=== PATIENT | female | born 1995 | race Caucasian/White ===

== ENCOUNTER 2024-08-19 13:12 | Inpatient (IN) | payer BC ==
[~2024-08-19] VITALS: Ht 162.6 cm; Wt 77.8 kg
[2024-08-19 13:58] LABS: LEUKOCYTE ESTERASE ,URINE NEGATIVE (Neg); NITRITES, URINE NEGATIVE (Neg); OCCULT BLOOD,URINE MODERATE (Neg)
[2024-08-19 14:00] LABS: URINE HCG NEGATIVE (NEG)
[2024-08-19 14:04] LABS: UA COLLECTION TYPE CLN CATCH MIDSTREAM
[2024-08-19 14:06] LABS: MUCUS STRANDS FEW /LPF (Neg); SQUAMOUS EPITHELIAL CELL,UR MODERATE /LPF (FEW)
[2024-08-19 14:09] LABS: MEAN PLATELET VOLUME 8.3 FL (7.4-10.4); RED CELL DISTRIBUTION WIDTH 13.3 % (11.5-14.5)
--- NOTE | 2024-08-19 14:10 | Physician Documentation ---
History of Present Illness Chief Complaint: Abdominal Pain Stated Complaint: ABD PAIN Time Seen by MD: 14:05 HPI 28-year-old female experiencing sudden onset right lower quadrant abdominal pain history of ovarian cyst Past Medical History Past Surgical History: no surgical history Lives In: Home Review of Systems Gastrointestinal: Reports: see HPI Physical Exam Vital Signs: RN Vital Signs have been reviewed: Yes, Temperature: 98.7, Source: Oral, Heart Rate: 110, Respiratory Rate: 18, BP: 114/77, Pulse Oximetry: 100, Weight: 77.850 Oxygen Flow Rate: 0 General Appearance: WD/WN, no apparent distress Respiratory: lungs clear, normal breath sounds, no respiratory distress Cardiovascular: regular rate, rhythm Gastrointestinal Tender to palpate right lower quadrant no rebound tenderness no guarding rigidity normal bowel sounds Progress Results/Orders Results/Orders Vital Signs 08/19/24 13:31 Temp 98.7 Pulse 110 Resp 18 B/P (MAP) 114/77 Pulse Ox 100 O2 Flow Rate 0 Laboratory Tests Test 08/19/24 13:35 08/19/24 13:47 Urine Specimen Description Cln catch midstream Urine Color Yellow Urine Clarity Clear Urine pH 6.0 Urine Specific [place] 1.025 Urine Protein Negative Urine Glucose (UA) Negative Urine Ketones Trace H Urine Occult Blood Moderate H Urine Nitrite Negative Urine Bilirubin Negative Urine Urobilinogen 0.2 Urine Leukocyte Esterase Negative Urine RBC 0-2 Urine WBC None seen Urine Squamous Epithelial Cells Moderate Urine Bacteria None seen Urine Mucus Few Urine Culture Indicated Not ind Volume Urine Centrifuged 10 ml Urine HCG, Qualitative Negative Urine Comment CBC Comment Chemistry Comments EKG/XRAY/CT/US/VASC/MRI CT : Impression Exam: CT CT ABDOMEN PELVIS History: ABD PAIN, rule out appendicitis Comparison Study: None Technique: Multidetector spiral CT of the abdomen was performed from lung bases to pubic symphysis. Imaging was performed without IV contrast. Axial, coronal and sagittal multiplanar reformats were obtained from the axial data set by the technologist. Radiation Dose : 1. Abdomen/Pelvis: CTDIvol 18.6 mGy, DLP 912 mGy*cm. Findings: Evaluation of solid organs is limited due to lack of intravenous contrast use. Lung Bases: No acute or significant lung base finding. Normal heart size. No pleural or pericardial effusion. Liver: The liver is normal in size. No focal lesions. Gallbladder and Biliary Tree: Unremarkable Spleen: Unremarkable Pancreas: The pancreas is grossly normal in appearance. Adrenal Glands: Unremarkable Kidneys: Punctate nonobstructing right renal calculus. No hydronephrosis. Bladder: Grossly unremarkable for degree of distention. Bowel: The stomach is grossly normal in appearance. Small bowel and colon are normal in caliber and distribution. The proximal appendix is normal in caliber. At the mid appendix there is a 8 x 6 x 9 mm densely calcified appendicolith. The appendix distal to this is enlarged (1.7 cm) with wall thickening. There is moderate surrounding periappendiceal fat stranding and mild ill-defined soft tissue which may represent phlegmon. There is no well-defined abscess. No evidence of free air. Ascites: Trace free fluid in the pelvis. Lymphadenopathy: No mesenteric, retroperitoneal or periportal lymphadenopathy. Abdominal Wall and Mesentery: Unremarkable. Vasculature: The visualized abdominal aorta is normal in size and caliber. Evaluation of abdominal and pelvic vessels is limited due to lack of intravenous contrast. Pelvic Organs: Uterus is unremarkable. A tampon is in place. Musculoskeletal: No aggressive focal bony lesions, acute fractures or dislocation. IMPRESSION: Acute appendicitis due to a mid appendiceal appendicolith. Moderate surrounding inflammation/phlegmon. No evidence of free air or well-defined abscess. Critical Result: Acute appendicitis Ultrasound : Impression Technique: Real-time ultrasound images through the pelvis using a transabdominal transducer. Indication: History of ovarian cyst right lower quadrant pain Comparison: None Findings: The uterus measures 7.6 cm. The endometrial stripe measures 2 mm. There are no focal masses. There is no abnormal flow in the endometrium. Right ovary measures 2.7 x 1.8 x 1.2 cm. Normal flow on color doppler images. No focal masses are identified. Left ovary measures 3.4 x 1.7 x 2.5 cm. Normal flow on color doppler images. No focal masses are identified. There is no significant free fluid in the pelvis. In the right lower quadrant, there is a blind ending tubular structure measuring 13 mm in diameter. No hyperemia seen. No surrounding edema seen. Impression: Blind-ending tubular structure in the right lower quadrant measuring 13 mm in diameter that is noncompressible. However there is no surrounding edema or evidence of hyperemia. Recommend CT abdomen pelvis to evaluate for possible appendicitis. No evidence for ovarian torsion. Medical Decision Making Findings 28-year-old with right lower quadrant acute onset abdominal pain with history of ovarian cyst labs reviewed with elevated white count preliminary read from ultrasound shows no significant ovarian cyst but thickening of appendix. CT indicates acute appendicitis without rupture abscessed no peritoneal signs spoke to [employer] aware of patient at 1723. Admit to hospitalist Differential Dx:Considerations: Include: Appendicitis, Bowel obstruction, Cholelithasis, Constipation, Diverticular disease, Gastroenteritis, Hernia, Inflammatory BD, Ovarian cyst/torsion, PID Departure Time of Disposition: 17:24 Disposition: 09 ADMITTED INPATIENT Impression: Primary Impression: Acute appendicitis Condition: Fair Referrals: NO PRIMARY CARE PROVIDER (PCP) Education Educated: Patient, Family Educated regarding: diagnosis, treatment, need for follow up Signature Scribe Signature: No scribe Attestation: The note accurately reflects work and decisions made by me.Madai Qiuntana - WADE 08/19/24 14:10 MADAI QUINTANA NP Aug 19, 2024 14:10
[2024-08-19 14:25] LABS: CREATININE 0.92 MG/DL (0.40-0.90); TOTAL CARBON DIOXIDE 24.4 MMOL/L (24-32); eCRCL 80 ML/MIN; eGFR 74 ML/MIN
--- NOTE | 2024-08-19 16:13 | RADIOLOGY REPORT ---
Technique: Real-time ultrasound images through the pelvis using a transabdominal transducer. Indication: History of ovarian cyst right lower quadrant pain Comparison: None Findings: The uterus measures 7.6 cm. The endometrial stripe measures 2 mm. There are no focal masses. There is no abnormal flow in the endometrium. Right ovary measures 2.7 x 1.8 x 1.2 cm. Normal flow on color doppler images. No focal masses are jeison ntified. Left ovary measures 3.4 x 1.7 x 2.5 cm. Normal flow on color doppler images. No focal masses are jeison ntified. There is no significant free fluid in the pelvis. In the right lower quadrant, there is a blind endin g tubular structure measuring 13 mm in diameter. No hyperemia seen. No surrounding edema seen. Impression: Blind-ending tubular structure in the right lower quadrant measuring 13 mm in diameter that is noncom pressible. However there is no surrounding edema or evidence of hyperemia. Recommend CT abdomen pelv is to evaluate for possible appendicitis. No evidence for ovarian torsion.
--- NOTE | 2024-08-19 17:00 | RADIOLOGY REPORT ---
Exam: CT CT ABDOMEN PELVIS History: ABD PAIN, rule out appendicitis Comparison Study: None Technique: Multidetector spiral CT of the abdomen was performed from lung bases to pubic symphysis. Imaging was performed without IV contrast. Axial, coronal and sagittal multiplanar reformats were ob tained from the axial data set by the technologist. Radiation Dose : 1. Abdomen/Pelvis: CTDIvol 18.6 mGy, DLP 912 mGy*cm. Findings: Evaluation of solid organs is limited due to lack of intravenous contrast use. Lung Bases: No acute or significant lung base finding. Normal heart size. No pleural or pericardial effusion. Liver: The liver is normal in size. No focal lesions. Gallbladder and Biliary Tree: Unremarkable Spleen: Unremarkable Pancreas: The pancreas is grossly normal in appearance. Adrenal Glands: Unremarkable Kidneys: Punctate nonobstructing right renal calculus. No hydronephrosis. Bladder: Grossly unremarkable for degree of distention. Bowel: The stomach is grossly normal in appearance. Small bowel and colon are normal in caliber and d istribution. The proximal appendix is normal in caliber. At the mid appendix there is a 8 x 6 x 9 mm densely calcified appendicolith. The appendix distal to this is enlarged (1.7 cm) with wall thickeni ng. There is moderate surrounding periappendiceal fat stranding and mild ill-defined soft tissue whic h may represent phlegmon. There is no well-defined abscess. No evidence of free air. Ascites: Trace free fluid in the pelvis. Lymphadenopathy: No mesenteric, retroperitoneal or periportal lymphadenopathy. Abdominal Wall and Mesentery: Unremarkable. Vasculature: The visualized abdominal aorta is normal in size and caliber. Evaluation of abdominal a nd pelvic vessels is limited due to lack of intravenous contrast. Pelvic Organs: Uterus is unremarkable. A tampon is in place. Musculoskeletal: No aggressive focal bony lesions, acute fractures or dislocation. IMPRESSION: Acute appendicitis due to a mid appendiceal appendicolith. Moderate surrounding inflammation/phlegmon . No evidence of free air or well-defined abscess. Critical Result: Acute appendicitis Findings discussed with SOFYA WILKERSON at 08/19/2024 04:55 PM, and acknowledged receipt and under standing of the findings.
[2024-08-19] MEDS: ondansetron/PF 4mg/2ml inj IV ONE (17:49)
[2024-08-19] MEDS: piperacillin/tazo 3.375gm/50ml 50 ML IV ONE (17:50)
[2024-08-19] MEDS: morphine 4 MG/ML inj SYRINge IV ONE ×2 (17:50→18:54)
[2024-08-19] MEDS: normal saline 1000ML IV soln IVB ONE (17:51)
[2024-08-19] MEDS ORDERED: NO HOME MEDS (18:03)
[2024-08-19] MEDS ORDERED: HYDROcodone/acetaminophen 5mg/325mg tablet PO PRN (19:25)
[2024-08-19] MEDS ORDERED: HYDROmorphone/PF 0.2 MG/ML SYRINGE IV PRN (19:25)
--- NOTE | 2024-08-19 19:32 | HISTORY AND PHYSICAL-Residence ---
History & Physical Providers to CC Resident Creating Document: RENU COOMBS, RES ~ History of Present Illness Primary Medical Doctor: [facility] Reason for Admit\Complaint: Acute appendicitis History of Present Illness Attestation I agree with the residents assessment and plan as below: Problem List: appendicitis Plan: continue zosyn empirically NPO plan for OR in am mIVF CCT 47 min using HIPPA compliant A/V technology This is a 28-year-old female with history of multiple ovarian cyst s/p cystectomy presents to the ER with a chief complaint of right lower quadrant pain since yesterday. Patient states that she had cold sweats, dizziness and felt like she was about to pass out on night followed by which he had severe abdominal pain. Patient pain has progressively worsened and had no relief despite taking Tylenol, ibuprofen or using heating pad. Today it worsened to the level that she could not move, hence decided to come to the ER. She denies any nausea, vomiting, diarrhea, fever, significant smoking history. Allergies: Coded Allergies: No Known Allergies (Unverified , 08/19/24) Home Medications Home Medications Active Reported No Home Medications (Home Med List) Each Past Medical History Past Medical History Multiple ovarian cysts Past Surgical History Surgical History Comment Cystectomy Past Social History Social History Comment Denies smoking, occasionally used alcohol five years ago, quit now. Denies any drug use. Lives with and [id number] kid at home. Ambulates independently Lives In: Home ROS ROS Reviewed in full and negative except for the pertinent positives in HPI Gastrointestinal: Reports: see HPI Exam Vitals: Vital Signs Date Time Temp Pulse Resp B/P (MAP) Pulse Ox O2 Delivery O2 Flow Rate FiO2 08/19/24 18:56 87 20 102/62 (75) 99 08/19/24 17:20 98.7 0 General: General: well developed, well nourished. Awake , alert, and oriented x4, resting comfortably in the bed, in no acute distress . HEENT: Atraumatic, normocephalic, EOMI, anicteric sclera B; pink conjunctiva; PERRLA, normal oropharynx, moist oral and nasal mucosa. Tympanic membrane , nose , throat clear. Neck: Trachea midline. Supple, full range of motion, no JVD, bruit , hepatojugular reflex , lymphadenopathy or masses, or other lesions Cardiac: Regular rhythm, regular rate no murmurs, rubs, or gallops. Normal S1 and S2, no S3 noticed. PMI is normal. Respiratory: Equal breath sounds bilaterally, no tachypnea; lungs clear to auscultation bilaterally, no wheezing ,rub or rales, or crackles. Chest wall is symmetric and without deformity. No signs of trauma. Chest wall is nontender. No signs of respiratory distress. Resonance is normal upon percussion bilaterally. Gastrointestinal: Abdomen symmetric, non-distended, soft, severe tenderness to palpation in the right lower quadrant, normal bowel sounds x4 quadrant, normoactive, no hepatosplenomegaly , no masses , no bruit, no flank pain bilaterally. No voluntary guarding, rebound, or rigidity. No pulsatile masses. Equal femoral pulses. No Nguyen's sign, positive McBurney point tenderness. Back; no CVA tenderness bilaterally, no deformities. Neck and back are without deformity as well. No tenderness noted on palpation of the spinous processes. Spinous processes are midline. Cervical, thoracic, and lumbar paraspinal muscles are not tender and are without spasm. : normal external genitalia, without lesions, swelling, masses or tenderness. Musculoskeletal: Extremities, normal range of motion, non-tender, muscle strength 5/5 x 4. Negative Homans signs bilaterally on lower extremity. Distal pulses full symmetrical, no clubbing, cyanosis , edema. Neurological: Speech is clear, alert, and oriented x 4. No motor or sensory deficit, deep tendon reflexes normal, cerebellar intact. Cranial nerves II-XII intact. Psych: Alert and or appropriate, normal affect. Vascular: Good distal pulses, which are equal x4; capillary refill less than 2 seconds. Skin: Warm, dry, no pallor, no rash or petechiae. Diagnostic Data Last Recorded Lab Results: 08/19/24 1347 08/19/24 1347 Advance Care Planning Advanced Care plannin - 30 Minutes (I spent a total of 17 minutes on reviewing various resuscitative measures/ ACP with the patient at the time of admission. The patient has decided on a full code status) Additional Plan Acute non perforated appendicitis Severe right lower quadrant pain and McBurney tenderness present Pelvis ultrasound showed Blind-ending tubular structure in the right lower quadrant measuring 13 mm in diameter that is noncompressible. However there is no surrounding edema or evidence of hyperemia. Recommend CT abdomen pelvis to evaluate for possible appendicitis. No evidence for ovarian torsion. CT abdomen showed Acute appendicitis due to a mid appendiceal appendicolith. Moderate surrounding inflammation/phlegmon. No evidence of free air or well- defined abscess. Beta hCG is negative. Mild leukocytosis with WBC 69013, creatinine at 0.92 Started on prophylactic antibiotic Zosyn Q [address] Castellon has been consulted. Recommendations appreciated. Pain management with morphine as needed. Diet recommendations per surgeon Code Status: Full code DVT Prophylaxis: Heparin Analgesia/Sedation: Dilaudid, morphine p.r.n. Lines/Tubes: PIV Gi Prophylaxis: None Nutrition: Per surgeon recommendation PT: Yes Prognosis: Guarded Disposition: Admit to surgical floor. Pending surgical recommendation Renu Cano MD Internal Medicine Resident PGY-1 Date of Service: Aug 19, 2024 Billing Provider: ALEXANDER NORIEGA MD, DEEPIKA BANDI, RES Aug 19, 2024 19:32 ALEXANDER NORIEGA MD Aug 20, 2024 03:00
--- NOTE | 2024-08-19 19:53 | PROGRESS NOTE ---
Progress Note ID Providers to CC ~ Progress Note Progress Note: pt seen and examined-needs rogero appy-possible open-discussed procedure including risks/benefits/alternatives MARINA MCDOWELL MD Aug 19, 2024 19:53
[2024-08-19] MEDS: heparin, porcine 5000 units/ml vial SQ SCH (20:00)
[2024-08-19] MEDS ORDERED: morphine 4 MG/ML inj SYRINge IV PRN (20:10)
[2024-08-19] MEDS ORDERED: ondansetron/PF 4mg/2ml inj IV PRN (20:10)
[2024-08-19] MEDS ORDERED: labetalol 20mg/4ml (5mg/ml) syringe IV PRN (20:10)
[2024-08-19] MEDS ORDERED: fentaNYL/PF 50MCG/1 ML 2ML syringe IV PRN ×2 (20:10)
[2024-08-19] MEDS ORDERED: hydrALAZINE 20mg/ml inj. IV PRN (20:10)
[2024-08-19] MEDS ORDERED: ringers solution, lacted 1,000 ML IV SCH (20:10)
[2024-08-19] MEDS: HYDROmorphone inj. 0.5 MG/0.5 ML DISP.SYRIN IV PRN (20:11)
[2024-08-19 21:20] VITALS: RESP 18; O2SAT 97
[2024-08-19 21:30] VITALS: BP 116/71; PULSE 110; RESP 18; TEMP 99.2; O2SAT 97
[2024-08-19] MEDS: docusate sod 100mg capsule PO SCH (22:00)
[2024-08-19] MEDS: ondansetron/PF 4mg/2ml inj IV PRN (22:21)
[2024-08-19] MEDS: piperacillin/tazo 3.375gm/50ml 50 ML IV SCH (23:52)
[2024-08-20] VITALS (23 sets, daily range): BP systolic 76–110; BP diastolic 46–68; PULSE 57–133; RESP 8–19; TEMP 97.3–100.1; O2SAT 93–98
[2024-08-20] MEDS ORDERED: ceFAZolin/D5W- 1GM premix 50 ML IV SCH
[2024-08-20] MEDS: normal saline 1000ml 1,000 ML IV SCH (03:15)
[2024-08-20 05:55] LABS: MEAN PLATELET VOLUME 8.7 FL (7.4-10.4); RED CELL DISTRIBUTION WIDTH 13.3 % (11.5-14.5)
[2024-08-20 06:10] LABS: CREATININE 0.94 MG/DL (0.40-0.90); TOTAL CARBON DIOXIDE 22.4 MMOL/L (24-32); eCRCL 78 ML/MIN; eGFR 72 ML/MIN
--- NOTE | 2024-08-20 07:16 | ELECTROCARDIOGRAPH REPORT ---
[facility] Test Date: 2024-08-20 Test Time: 07:15:08 Pat Name: AIDEE MORALES Department: [facility] 3 Patient ID: [id number] Room: [place] [id number] B Gender: F Rope Walker: : 1995 Requested By: MARINA MCDOWELL Order Number: [id number] Reading MD: Dr. LAUREL Baltazar Measurements Intervals [place] Rate: 116 P: 25 MO: 146 QRS: 2 QRSD: 89 T: 0 QT: 286 QTc: 398 Interpretive Statements Sinus tachycardia Low voltage, precordial leads Borderline abnrm T, anterolateral leads Electronically Signed On 08-20-2024 11:46:[address] LAUREL Baltazar Please click the below link to view image of tracing.
[2024-08-20] MEDS: HYDROcodone/acetaminophen 10/325mg tab PO PRN (07:39)
[2024-08-20] MEDS ORDERED: morphine 4 MG/ML inj SYRINge IV PRN (08:00)
[2024-08-20] MEDS ORDERED: ondansetron/PF 4mg/2ml inj IV PRN (08:00)
[2024-08-20] MEDS ORDERED: labetalol 20mg/4ml (5mg/ml) syringe IV PRN (08:00)
[2024-08-20] MEDS ORDERED: fentaNYL/PF 50MCG/1 ML 2ML syringe IV PRN ×2 (08:00)
[2024-08-20] MEDS ORDERED: hydrALAZINE 20mg/ml inj. IV PRN (08:00)
[2024-08-20 08:01] LABS: PRE OP INR 1.3 INR; PRE OP PARTIAL THROMB. TIME 31.0 SECONDS (22-32); PRE OP PROTIME 12.7 SECONDS (9.0-12.0)
[2024-08-20] MEDS ORDERED: LIDOcaine 2% (20mg/ml) 5ml vial ONE (08:06)
[2024-08-20] MEDS ORDERED: dexamethasone sod phosphate 4mg/ml inj. ONE (08:06)
[2024-08-20] MEDS ORDERED: rocuronium 10mg/ml inj IV ONE (08:06)
[2024-08-20] MEDS ORDERED: propofol inj 20 ML IV ONE (08:06)
[2024-08-20] MEDS ORDERED: ondansetron/PF 4mg/2ml inj ONE (08:06)
[2024-08-20] MEDS ORDERED: magnesium sulf-water 4G/100mL 100 ML IV PRN ×2 (08:50→08:55)
[2024-08-20] MEDS ORDERED: magnesium sulf-water 2g/50mL 50 ML IV PRN ×2 (08:50→08:55)
[2024-08-20] MEDS ORDERED: magnesium Cl slow-release 64mg tablet PO PRN ×2 (08:50→08:55)
[2024-08-20] MEDS ORDERED: potassium Cl 40MEQ/1/2NS 520ml 520 ML IV PRN ×2 (08:50→08:55)
[2024-08-20] MEDS ORDERED: potassium Cl 20 mEq SR tablet PO PRN ×2 (08:55)
[2024-08-20] MEDS: scopolamine 1MG/72H patch 1 PATCH PATCH.TD.3 TD STA (09:06)
[2024-08-20] MEDS ORDERED: midazolam 1 mg/ML 2ml injection ONE (09:23)
[2024-08-20] MEDS ORDERED: ketorolac trometh 30MG/ML vial 30 MG/ML VIAL ONE (09:23)
[2024-08-20] MEDS ORDERED: acetaminophen 1,000mg/100ml IV 100 ML IV ONE (09:23)
[2024-08-20] MEDS ORDERED: metoprolol tartrate 1mg/ml inj IV ONE (09:34)
--- NOTE | 2024-08-20 11:02 | OPERATIVE REPORT ---
Operative Report Providers to CC CC: MARINA MCDOWELL MD ~ Date of Procedure: Aug 20, 2024 Pre-Operative Diagnosis: ACUTE APPENDICITIS Post-Operative Diagnosis ruptured appendicitis Procedure Performed chari proctor Surgeon: ronit Artificial Breeding Technician none Anesthesiologist: Emmanuel Ye Type of Anesthesia: General Findings: ruptured appendicitis Estimated Blood Loss: min Specimen Removed: MARINA Baldwin MD Aug 20, 2024 11:02
[2024-08-20] MEDS: ringers solution, lacted 1,000 ML IV SCH (11:04)
--- NOTE | 2024-08-20 12:17 | OPERATIVE REPORT ---
DATE OF SURGERY: 08/20/2024 DICTATING PHYSICIAN: Diaz Castellon MD PREOPERATIVE DIAGNOSIS: Appendicitis. POSTOPERATIVE DIAGNOSIS: Ruptured appendicitis. PROCEDURE PERFORMED: Robotic appendectomy. SURGEON: Diaz Castellon MD RAILROAD FIRER: None. ANESTHESIA: General/Dr. Ye. DRAINS: #19 Srini drain. INDICATIONS FOR OPERATION: A 48-year-old female who presented to the ER with complaints of abdominal pain, found to have acute appendicitis, taken to surgery for robotic appendectomy. INTRAOPERATIVE FINDINGS: Gangrenous appendicitis. DESCRIPTION OF PROCEDURE: The patient was placed supine on the operating table. After induction of general anesthesia and placement of endotracheal tube, the abdomen was prepped and draped. A subumbilical incision was then made and a 12 port placed using open technique and pneumoperitoneum was begun by insufflation of CO2. Additional ports were placed in the left lower quadrant and right upper quadrant. Appendix was then visualized on mobilizing small bowel and cecum away from the right lower quadrant. Appendix found to be gangrenous. Appendiceal cecal junction was identified, isolated and ligated with Endo-KAPIL stapler and divided as was the appendiceal mesentery. Appendix ruptured during the course of mobilization. Abdomen was copiously irrigated with large amount of antibiotic-containing solution. Hemostasis was found to be adequate. Robotic instruments were removed. Robotic undocked from the field. Appendix was placed in Endobag using a laparoscope. A #19 Srini drain was placed and directed in the pelvis. New ports were then removed without difficulty. Final port and camera withdrawn as well as appendix using Endobag. Pneumoperitoneum was evacuated. Wounds were closed in layers. Skin was closed with subcuticular stitch. Dressings applied. The patient was transferred to recovery in stable condition. Diaz Castellon MD TID: [id number] RECEIPT: [id number] DONTE/DARLING
--- NOTE | 2024-08-20 14:44 | PROGRESS NOTE- Residence ---
Progress Note - Resident Providers to CC Resident Creating Document: JEFFERSON MALHOTRA RES ~ Antibiotic Timeout Antibiotic Ordered?: Yes If Yes, Indications: Appendicitis Subjective Patient in seen and examined at bedside. Patient reports mild abdominal pain after the surgery but is otherwise feeling well. She denies nausea, vomiting, fever or other symptoms. She tolerated soft diet after the surgery. Objective Vital Signs Date Time Temp Pulse Resp B/P (MAP) Pulse Ox O2 Delivery O2 Flow Rate FiO2 08/20/24 12:52 Room Air 08/20/24 12:40 2.0 08/20/24 12:30 93 19 96 08/20/24 10:58 97.3 08/20/24 00:27 97 Result Diagram: 08/20/24 0505 08/20/24 0505 General: Awake and Alert, no acute distress. HEENT: Conjunctiva pink, Sclera clear, Mucus Membranes moist. Neck: Supple without masses and tenderness. Resp: Unlabored. Lungs clear to auscultation bilaterally. Heart: Regular Rate and rhythm, normal S1 and S2 without murmur, rub or gallop. Abdomen: Srini drain placed with serosanguineous secretion. Abdomen mildly distended but not tender. normal bowel sounds x4 quadrant, normoactive, no hepatosplenomegaly , no masses , no bruit, no flank pain bilaterally. No voluntary guarding, rebound, or rigidity. No pulsatile masses. . Extremities: No cyanosis,clubbing or edema. Skin: Warm and Dry. Coagulation Studies Laboratory Tests Test 08/20/24 07:41 Prothrombin Time 12.7 SECONDS (9.0-12.0) H INR International Normalized Ratio 1.3 INR Activated Partial Thromboplast Time 31 SECONDS (22-32) Assessment Assessment This is a 28-year-old female with history of multiple ovarian cyst s/p cystectomy presented to the ER with a chief complaint of severe right lower quadrant pain for two days. She underwent and appendectomy for ruptured appendicitis without any complication. A Srini drain was placed and the patient is recovering well. Plan Plan Acute perforated appendicitis Severe right lower quadrant pain and McBurney tenderness present CT abdomen showed acute appendicitis due to a mid appendiceal appendicolith. Moderate surrounding inflammation/phlegmon. No evidence of free air or well- defined abscess. Beta hCG is negative. Mild leukocytosis with WBC 40823, creatinine at 0.92 Started on prophylactic antibiotic Zosyn Q [address] Castellon has been consulted. Recommendations appreciated. Pain management with morphine as needed. Diet recommendations per surgeon 08/20/2024 Postoperative diagnosis: ruptured appendicitis Continue postsurgical care Continue Zosyn Continue symptomatic treatment Code Status: Full code DVT Prophylaxis: Heparin Analgesia/Sedation: Ketorolac, Dilaudid, morphine p.r.n. Lines/Tubes: PIV Gi Prophylaxis: None Nutrition: Per surgeon recommendation PT: Yes Prognosis: Guarded Disposition: Continue medical treatment. Discharge plan as per surgeon. Date of Service: Aug 20, 2024 Billing Provider: GRANT BUNDY MD Common Visit Codes: [id number] INP/OBS CARE(HIGH) JEFFERSON MALHOTRA, RES Aug 20, 2024 14:44 GRANT BUNDY MD Aug 20, 2024 20:15
[2024-08-20] MEDS: potassium Cl 20 mEq SR tablet PO PRN ×2 (17:08→20:40)
[2024-08-20] MEDS: K and/or MAG REPLACEMENT MC SCH ×2 (20:00→20:41)
[2024-08-20] MEDS: ketorolac trometh 30MG/ML vial 30 MG/ML VIAL IV PRN (20:28)
[2024-08-21] VITALS (9 sets, daily range): BP systolic 81–106; BP diastolic 48–68; PULSE 76–115; RESP 12–20; TEMP 97.6–100.1; O2SAT 92–97
--- NOTE | 2024-08-21 04:59 | CONSULTATION ---
DATE OF CONSULTATION: 08/19/2024 DICTATING PHYSICIAN: Diaz Castellon MD REASON FOR CONSULTATION: Evaluation of abdominal pain. HISTORY OF PRESENT ILLNESS: The patient is a 28-year-old female who presented to the ER with complaints of abdominal discomfort. CAT scan revealed evidence of acute appendicitis. Surgical evaluation now requested. On further questioning, complaints of right lower quadrant pain for the last 18 hours. Does have some fever. The patient also complains of nausea, vomiting and diarrhea. PAST MEDICAL HISTORY: Significant for ovarian cyst. PAST SURGICAL HISTORY: Notable for previous left ovarian cystectomy. HOME MEDICATIONS: None. ALLERGIES: None. SOCIAL HISTORY: Denies tobacco. Occasional alcohol use. REVIEW OF SYSTEMS: Unremarkable. PHYSICAL EXAMINATION: GENERAL: A well-nourished female, in no distress. VITAL SIGNS: Unremarkable. HEART: Regular rate and rhythm. LUNGS: Clear to auscultation. ABDOMEN: Right quadrant pain. EXTREMITIES: Unremarkable. NEUROLOGIC: Nonfocal. LABORATORY DATA: Include WBC of 11, hematocrit of 40, platelet count 300. Chemistries unremarkable. IMAGING STUDIES: CAT revealed acute appendicitis. Ultrasound shows no evidence of torsion. IMPRESSION: Acute appendicitis. RECOMMENDATIONS: * Admit. * Hydrate. * IV antibiotics. * Robotic appendectomy. Diaz Castellon MD TID: [id number] RECEIPT: [id number]/[id number]
[2024-08-21 06:06] LABS: MEAN PLATELET VOLUME 9.6 FL (7.4-10.4); RED CELL DISTRIBUTION WIDTH 13.3 % (11.5-14.5)
[2024-08-21 06:30] LABS: CREATININE 0.92 MG/DL (0.40-0.90); TOTAL CARBON DIOXIDE 18.7 MMOL/L (24-32); eCRCL 80 ML/MIN; eGFR 74 ML/MIN
--- NOTE | 2024-08-21 17:42 | PROGRESS NOTE- Residence ---
Progress Note - Resident Providers to CC Resident Creating Document: WILLY SYED CC: GRANT BUNDY MD ~ Antibiotic Timeout Antibiotic Ordered?: Yes Subjective Patient in seen and examined at bedside. She is recovering well from surgery. She still reports 8/10 pain in surgical site. Tolerating clear liquids. She has not passed gas or have a bowel movement yet Objective Vital Signs Date Time Temp Pulse Resp B/P (MAP) Pulse Ox O2 Delivery O2 Flow Rate FiO2 08/21/24 10:00 100.1 103 18 100/59 (73) 92 Room Air 08/21/24 02:27 97 08/21/24 02:25 0 Result Diagram: 08/21/2442208/21/24422 General: awake, alert oriented to place, time, and person HEENT: No pallor present, no icterus, moist mucous membranes Neck: No masses and tenderness Resp: Unlabored. Lungs clear to auscultation bilaterally. Chest: Normal expansion Cardiovascular: Regular Rate and rhythm, normal S1 and S2 without murmur, rub or gallop Abdomen: Soft and moderately tender to palpation. No guarding and rigidity, bowel sounds faint but present. Drain in place Neuro: No focal weakness in the upper and lower limb muscles, power of the muscles 5/5 bilateral upper and lower extremities, normal reflexes bilaterally. Cranial nerves intact Extremities: No cyanosis,clubbing or edema Skin: Warm and Dry. No lesions Psych: Normal affect Coagulation Studies Laboratory Tests Test 08/20/24 07:41 Prothrombin Time 12.7 SECONDS (9.0-12.0) H INR International Normalized Ratio 1.3 INR Activated Partial Thromboplast Time 31 SECONDS (22-32) Assessment Assessment This is a 28-year-old female with history of multiple ovarian cyst s/p cystectomy presented to the ER with a chief complaint of severe right lower quadrant pain for two days. She underwent and appendectomy for ruptured appendicitis without any complication. A Srini drain was placed and the patient is recovering well. Plan Plan Acute perforated appendicitis Severe right lower quadrant pain and McBurney tenderness present CT abdomen showed acute appendicitis due to a mid appendiceal appendicolith. Moderate surrounding inflammation/phlegmon. No evidence of free air or well- defined abscess. Beta hCG is negative. Mild leukocytosis with WBC 40981, creatinine at 0.92 Started on prophylactic antibiotic Zosyn Q [address] Castellon has been consulted. Recommendations appreciated. Pain management with morphine as needed. Diet recommendations per surgeon 08/20/2024 Postoperative diagnosis: ruptured appendicitis Continue postsurgical care Continue Zosyn Continue symptomatic treatment 08/21/2024: She is recovering well Tolerating clear liquids Continue Zosyn, day 2 Continue pain management Code Status: Full code DVT Prophylaxis: Heparin Analgesia/Sedation: Ketorolac, Dilaudid, morphine p.r.n. Lines/Tubes: PIV Gi Prophylaxis: None Nutrition: Per surgeon recommendation PT: Yes Prognosis: Guarded Disposition: Continue medical treatment. Discharge plan as per surgeon. Willy Quezada MD Internal Medicine Resident PGY-2 Date of Service: Aug 21, 2024 Billing Provider: GRANT BUNDY MD Common Visit Codes: [id number] INP/OBS CARE(HIGH) WILLY SYED Aug 21, 2024 17:42 GRANT BUNDY MD Aug 22, 2024 08:11
--- NOTE | 2024-08-21 18:48 | PROGRESS NOTE ---
Progress Note ID Providers to CC ~ Progress Note Progress Note: doing well/cont antibx MARINA MCDOWELL MD Aug 21, 2024 18:48
[2024-08-22 04:24] LABS: MEAN PLATELET VOLUME 8.4 FL (7.4-10.4); RED CELL DISTRIBUTION WIDTH 13.4 % (11.5-14.5)
[2024-08-22 04:49] LABS: CREATININE 1.03 MG/DL (0.40-0.90); TOTAL CARBON DIOXIDE 21.1 MMOL/L (24-32)
[2024-08-22 04:50] LABS: eCRCL 71 ML/MIN; eGFR 65 ML/MIN
[2024-08-22 06:00] VITALS: BP 112/65; PULSE 79; RESP 18; TEMP 98.7; O2SAT 94
[2024-08-22 08:00] VITALS: RESP 17; O2SAT 94
--- NOTE | 2024-08-22 13:55 | PROGRESS NOTE- Residence ---
Progress Note - Resident Providers to CC Resident Creating Document: JEFFERSON MALHOTRA RES ~ Antibiotic Timeout Antibiotic Ordered?: Yes If Yes, Indications: Acute inflammatory abdomen Subjective Patient in seen and examined at bedside. She is recovering well from surgery. She still reports mild pain in surgical site. She is partially tolerating clear diet, denies nausea or vomiting. She did not have a bowel movement since surgery. No fever or overnight events reported. Objective Vital Signs Date Time Temp Pulse Resp B/P (MAP) Pulse Ox O2 Delivery O2 Flow Rate FiO2 08/22/24 11:22 16 08/22/24 08:00 94 Room Air 08/22/24 06:00 98.7 79 112/65 (81) 08/21/24 02:27 97 08/21/24 02:25 0 Result Diagram: 08/22/2441208/22/24412 General: Awake and Alert, no acute distress. HEENT: Conjunctiva pink, Sclera clear, Mucus Membranes moist. Neck: Supple without masses and tenderness. Resp: Unlabored. Lungs clear to auscultation bilaterally. Heart: Regular Rate and rhythm, normal S1 and S2 without murmur, rub or gallop. Abdomen: Srini drain placed with serosanguineous secretion. Abdomen mildly distended but not tender. normal bowel sounds x4 quadrant, normoactive, no hepatosplenomegaly , no masses , no bruit, no flank pain bilaterally. No voluntary guarding, rebound, or rigidity. No pulsatile masses. . Extremities: No cyanosis,clubbing or edema. Skin: Warm and Dry. Coagulation Studies Laboratory Tests Test 08/20/24 07:41 Prothrombin Time 12.7 SECONDS (9.0-12.0) H INR International Normalized Ratio 1.3 INR Activated Partial Thromboplast Time 31 SECONDS (22-32) Assessment Assessment This is a 28-year-old female with history of multiple ovarian cyst s/p cystectomy presented to the ER with a chief complaint of severe right lower quadrant pain for two days. She underwent appendectomy for ruptured appendicitis. A Srini drain was placed and the patient is recovering well. Plan Plan Acute perforated appendicitis Severe right lower quadrant pain and McBurney tenderness present CT abdomen showed acute appendicitis due to a mid appendiceal appendicolith. Moderate surrounding inflammation/phlegmon. No evidence of free air or well- defined abscess. Beta hCG is negative. Mild leukocytosis with WBC 22554, creatinine at 0.92 Started on prophylactic antibiotic Zosyn Q [address] Castellon has been consulted. Recommendations appreciated. Pain management with morphine as needed. Diet recommendations per surgeon 08/20/2024 Postoperative diagnosis: ruptured appendicitis Continue postsurgical care Continue Zosyn Continue symptomatic treatment 08/21/2024: She is recovering well Tolerating clear liquids Continue Zosyn, day 2 Continue pain management 08/22/2024 WBC 8.6 Diet progression as tolerated Continue Zosyn, day 3 Code Status: Full code DVT Prophylaxis: Heparin Analgesia/Sedation: Ketorolac, Dilaudid, morphine p.r.n. Lines/Tubes: PIV Gi Prophylaxis: None Nutrition: Per surgeon recommendation Prognosis: Guarded Disposition: Continue medical treatment. Discharge plan as per surgeon. Date of Service: Aug 22, 2024 Billing Provider: GRANT BUNDY MD Common Visit Codes: [id number] INP/OBS CARE(HIGH) JEFFERSON MALHOTRA, RES Aug 22, 2024 13:55 GRANT BUNDY MD Aug 22, 2024 20:52
[2024-08-22] MEDS ORDERED: AMOX-117 PO (14:28)
[2024-08-22 18:00] VITALS: BP 121/79; PULSE 126; RESP 17; TEMP 97.9; O2SAT 96
--- NOTE | 2024-08-22 21:27 | PROGRESS NOTE ---
Progress Note ID Providers to CC ~ Progress Note Progress Note: continues to improve/cont supportive care MARINA MCDOWELL MD Aug 22, 2024 21:27
[2024-08-22 22:00] VITALS: BP 118/75; PULSE 111; RESP 14; TEMP 99.5; O2SAT 100
[2024-08-23 04:57] LABS: MEAN PLATELET VOLUME 8.7 FL (7.4-10.4); RED CELL DISTRIBUTION WIDTH 13.8 % (11.5-14.5)
[2024-08-23 05:20] LABS: CREATININE 0.80 MG/DL (0.40-0.90); TOTAL CARBON DIOXIDE 23.1 MMOL/L (24-32); eCRCL 92 ML/MIN; eGFR 87 ML/MIN
[2024-08-23 06:00] VITALS: BP 110/77; PULSE 97; RESP 12; TEMP 97.5; O2SAT 92
[2024-08-23] MEDS: mag hydrox/Alum hydrox/simeth 30ml oral suspension PO PRN (09:44)
[2024-08-23 10:00] VITALS: BP 126/85; PULSE 121; RESP 15; TEMP 97.6; O2SAT 94
--- NOTE | 2024-08-23 12:23 | PROGRESS NOTE- Residence ---
Progress Note - Resident Providers to CC Resident Creating Document: JEFFERSON MALHOTRA RES ~ Antibiotic Timeout Antibiotic Ordered?: Yes If Yes, Indications: Ruptured appendicitis Subjective Patient in seen and examined at bedside. She is recovering well from surgery. She still reports mild pain in surgical site. She is partially tolerating full liquid diet, denies nausea or vomiting. She did not have a bowel movement since surgery but is passing gas. No fever or overnight events reported. Objective Vital Signs Date Time Temp Pulse Resp B/P (MAP) Pulse Ox O2 Delivery O2 Flow Rate FiO2 08/23/24 10:00 97.6 121 15 126/85 (99) 94 Room Air 08/21/24 02:27 97 08/21/24 02:25 0 Result Diagram: 08/23/2442208/23/24422 General: Awake and Alert, no acute distress. HEENT: Conjunctiva pink, Sclera clear, Mucus Membranes moist. Neck: Supple without masses and tenderness. Resp: Unlabored. Lungs clear to auscultation bilaterally. Heart: Regular Rate and rhythm, normal S1 and S2 without murmur, rub or gallop. Abdomen: Srini drain placed with serosanguineous secretion. Abdomen mildly distended but not tender. normal bowel sounds x4 quadrant, normoactive, no hepatosplenomegaly , no masses , no bruit, no flank pain bilaterally. No voluntary guarding, rebound, or rigidity. No pulsatile masses. . Extremities: No cyanosis,clubbing or edema. Skin: Warm and Dry. Coagulation Studies Laboratory Tests Test 08/20/24 07:41 Prothrombin Time 12.7 SECONDS (9.0-12.0) H INR International Normalized Ratio 1.3 INR Activated Partial Thromboplast Time 31 SECONDS (22-32) Assessment Assessment This is a 28-year-old female with history of multiple ovarian cyst s/p cystectomy presented to the ER with a chief complaint of severe right lower quadrant pain for two days. She underwent appendectomy for ruptured appendicitis. A Srini drain was placed, the patient is recovering well and is being treated with Zosyn. Plan Plan Acute perforated appendicitis Severe right lower quadrant pain and McBurney tenderness present CT abdomen showed acute appendicitis due to a mid appendiceal appendicolith. Moderate surrounding inflammation/phlegmon. No evidence of free air or well- defined abscess. Beta hCG is negative. Mild leukocytosis with WBC 71204, creatinine at 0.92 Started on prophylactic antibiotic Zosyn Q [address] Castellon has been consulted. Recommendations appreciated. Pain management with morphine as needed. Diet recommendations per surgeon 08/20/2024 Postoperative diagnosis: ruptured appendicitis Continue postsurgical care Continue Zosyn Continue symptomatic treatment 08/21/2024: She is recovering well Tolerating clear liquids Continue Zosyn, day 2 Continue pain management 08/22/2024 WBC 8.6 Diet progression as tolerated Continue Zosyn, day 3 08/23/2024 Continue Zosyn, day 4 Pain management Code Status: Full code DVT Prophylaxis: Heparin Analgesia/Sedation: Ketorolac, Dilaudid, morphine p.r.n. Lines/Tubes: PIV Gi Prophylaxis: None Nutrition: Per surgeon recommendation Prognosis: Guarded Disposition: Continue medical treatment. Discharge plan as per surgeon. Date of Service: Aug 23, 2024 Billing Provider: GRANT BUNDY MD Common Visit Codes: [id number] INP/OBS CARE(HIGH) JEFFERSON MALHOTRA, RES Aug 23, 2024 12:23 GRANT BUNDY MD Aug 23, 2024 19:18
[2024-08-23] MEDS: magnesium hydroxide 30ml (MOM) UD suspension PO PRN (17:15)
[2024-08-23] MEDS ORDERED: HYDR-3965 PO (19:26)
--- NOTE | 2024-08-24 18:38 | DISCHARGE SUMMARY-Residence ---
Discharge Summary Providers to CC Resident Creating Document: JEFFERSON MALHOTRA RES ~ Discharge Summary Admission Diagnosis: ACUTE APPENDICITIS Hospital Course DATE OF ADMISSION: 08/19/2024 DATE OF DISCHARGE: 08/23/2024 Discharge lab results Hemoglobin 10.3 WBC 7.2 Platelet count 315 Sodium 136 Potassium 3.9 BUN [address] 08/19/2024: Acute appendicitis due to a mid appendiceal appendicolith. Moderate surrounding inflammation/phlegmon. No evidence of free air or well-defined abscess. Discharge Diagnosis\Comment: Acute perforated appendicitis Operations\Procedures: Appendectomy Consultants: Dr. Castellon Complications: None Condition on DC: Stable New Medications: Amox Tr/Potassium Clavulanate (Augmentin 875-125 Tablet) 1 Each Tablet 1 TAB PO Q12H for 7 Days, #14 TAB Hydrocodone Bit/Acetaminophen 5/325 MG ([place] 5/325 MG) 5 Mg/325 Mg Tablet 1 TAB PO Q6H PRN for pain, #20 TAB Discharge Summary: History of present illness This is a 28-year-old female with history of multiple ovarian cyst s/p cystectomy presents to the ER with a chief complaint of right lower quadrant pain since yesterday. Patient states that she had cold sweats, dizziness and felt like she was about to pass out on night followed by which he had severe abdominal pain. Patient pain has progressively worsened and had no relief despite taking Tylenol, ibuprofen or using heating pad. Today it worsened to the level that she could not move, hence decided to come to the ER. She denies any nausea, vomiting, diarrhea, fever, significant smoking history. Hospital course This is a 28-year-old female with history of multiple ovarian cyst s/p cystectomy presented to the ER with a chief complaint of severe right lower quadrant pain for two days. She underwent appendectomy for ruptured appendicitis on 08/21/2024. A Srini drain was placed, the patient recovered well and was treated with Zosyn during four days. The patient was cleared by the surgeon and at discharge was complaining of mild nonspecific abdominal pain, but she was tolerating well regular diet and have passed flatus. No fever, nausea, vomiting or any complication reported. She is stable to be discharged. Discharge physical exam General: Awake and Alert, no acute distress. HEENT: Conjunctiva pink, Sclera clear, Mucus Membranes moist. Neck: Supple without masses and tenderness. Resp: Unlabored. Lungs clear to auscultation bilaterally. Heart: Regular Rate and rhythm, normal S1 and S2 without murmur, rub or gallop. Abdomen: Srini drain placed with serosanguineous secretion. Abdomen mildly distended but not tender. normal bowel sounds x4 quadrant, normoactive, no hepatosplenomegaly , no masses , no bruit, no flank pain bilaterally. No voluntary guarding, rebound, or rigidity. No pulsatile masses. . Extremities: No cyanosis,clubbing or edema. Skin: Warm and Dry. Discharge medication Augmentin 1g b.i.d. for seven days [place] 5/325 mg p.r.n. Discharge course Follow up with PCP in two weeks Follow up with Dr. Castellon in two weeks Continue to take antibiotic, Augmentin for seven days Call 911 or return to ER in case of increased pain, nausea, vomiting. *Problems/Diagnosis: (1) Acute appendicitis Status: Resolved Total Time Spent on D/C: > 30 Minutes Date of Service: Aug 24, 2024 Billing Provider: GRANT BUNDY MD,JEFFERSON, RES Aug 24, 2024 18:37
== END 2024-08-23 20:40 | disposition home or self-care (01) | DRG 399 ==
LOC: ER 13:13 → ED HOLD 19:31 → SUR 3N 21:16
PROVIDERS: ADMIT Internal Medicine; ATTEND Internal Medicine
PROC: 0D9J40Z Drainage of Appendix with Drainage Device, Percutaneous Endoscopic Approach (ICD-10-PCS; 2024-08-20)
PROC: 8E0W4CZ Robotic Assisted Procedure of Trunk Region, Percutaneous Endoscopic Approach (ICD-10-PCS; 2024-08-20)
PROC: 0DTJ4ZZ Resection of Appendix, Percutaneous Endoscopic Approach (ICD-10-PCS; principal; 2024-08-20 09:19)
DX: K35.32 Acute appendicitis with perforation, localized peritonitis, and gangrene, without abscess (principal)
CPT/HCPCS: 96365; 96375; 96376; 99285; Z7506; Z7508; 36415; 74176; 76856; 80053; 81001; 81025; 82948; 83690; 83735; 85025; 85610; 85730; 86885; 86900; 86901; 87081; 93005; 93976; A4215; A4314; A4615; A4618; A6258; A6402; A6449; G0378; J0131; J1100; J1171; J1644; J1885; J2003; J2250; J2270; J2405; J2543; J2704; J3490; J7030; J7120